=== PATIENT | male | born 1980 | race Caucasian/White ===

== ENCOUNTER → 2018-01-04 | Outpatient (CLI) | payer BC ==
[2018-01-04 16:14] LABS: HEMATOCRIT 46.8 % (42.0-52.0); HEMOGLOBIN 15.8 g/dL (13.5-18.0); MEAN PLATELET VOLUME 10.6 fl (7.4-10.4); RED BLOOD COUNT 5.38 M/mm3 (4.20-5.60); RED CELL DISTRIBUTION WIDTH 12.9 % (11.5-14.5); WHITE BLOOD COUNT 6.7 K/mm3 (4.8-10.8)
[2018-01-04 16:44] LABS: ALBUMIN 4.5 g/dL (3.5-5.0); BUN/CREATININE RATIO 17.8 (6.0-26.0); CALCIUM 9.7 mg/dL (8.4-10.2); POTASSIUM 4.2 mmol/L (3.6-5.0); TOTAL BILIRUBIN 0.4 mg/dL (0.2-1.3); TOTAL PROTEIN 7.7 g/dL (6.3-8.2)
[2018-01-05 23:02] LABS: ANA SCREEN with REFLEX Negative (Negative)
== END ==
LOC: LAB 15:42
PROVIDERS: Family Medicine
DX: E66.3 Overweight (principal); G56.00 Carpal tunnel syndrome, unspecified upper limb

== ENCOUNTER → 2018-05-28 | Outpatient (CLI) | payer OTHER | LOC: RAD 15:07 | DX: M79.642 Pain in left hand (principal) ==

== ENCOUNTER → 2020-11-05 | Outpatient (CLI) | payer OTHER ==
[2020-10-31 09:31] VITALS: BP 128/71
[~2020-11-05] MED LIST: FISH OIL1 IU; MAGNESIUM OXID400 M1; MULTIPLE VITAMI1 T25 PO; VITAMIN B122500 MC1; ZOFRAN ODT4 MG PO
== END ==
LOC: RAD 16:20
DX: R55 Syncope and collapse (principal)

== ENCOUNTER 2021-08-09 10:19 | Emergency (ER) | payer OTHER ==
[~2021-08-09] VITALS: Ht 180.3 cm; Wt 81.7 kg
[2021-08-09 12:27] VITALS: BP 112/73
== END 2021-08-09 12:27 | disposition home or self-care (01) ==
LOC: ED 10:19
DX: T59.91XA Toxic effect of unspecified gases, fumes and vapors, accidental (unintentional), initial encounter (principal); Z87.891 Personal history of nicotine dependence; X58.XXXA Exposure to other specified factors, initial encounter; Y99.0 Civilian activity done for income or pay

== ENCOUNTER → 2022-12-25 | Outpatient (CLI) | payer OTHER | LOC: RAD 16:35 | DX: R55 Syncope and collapse (principal); M54.2 Cervicalgia ==